=== PATIENT | male | born 1955 | race Caucasian/White ===

== ENCOUNTER → 2017-08-20 11:31 | Outpatient (CLI) | payer OTHER, SELFPAY ==
--- NOTE | 2017-08-20 11:40 | RAD_ITS ---
STUDY: X-RAY - RIGHT ANKLE REASON FOR EXAM: Male, 62 years old. Redness of the ankle TECHNIQUE: 3 view(s) of the ankle. COMPARISON: None. FINDINGS: There is mild swelling of the ankle but no acute fractures or dislocations. The ankle mortise and the subtalar joints are normal. RAD/Ankle min 3 Views IMPRESSION: No acute fractures. Mild soft tissue swelling Electronically Signed: Hector Lozano, at 10:42 EDT Tel , Service support ,
[2017-08-20 12:19] LABS: Absolute Lymphocyte Count 1.64 X10^3/ul (0.83-4.51); Absolute Neutrophil Count 5.4 X10^3/uL (2.0-7.7); Basophil# 0.03 X10^3/uL; Basophil% 0.4 % (0-1); Eosinophil# 0.23 X10^3/uL; Eosinophils% 2.9 % (0-5); Hematocrit 45.4 % (40-54); Hemoglobin 15.8 g/dl (13.0-16.5); Lymphocyte # 1.64 X10^3/ul (4.0); Lymphocyte % 20.9 % (19-41); Mean Corp Hgb Conc 34.8 g/gl (32-36); Mean Platelet Vol. 12.3 fl (6.2-12.0); Monocyte# 0.53 X10^3/uL; Monocyte% 6.8 % (0-10); Neutrophil # 5.37 X10^3/uL (2.7-7.7); Neutrophil % 68.6 % (47-70); Platelet Count 163 K/mm3 (150-450); RBC Distribution Width CV 13.1 % (11.6-14.6); RBC Distribution Width SD 42.5 fl (35.1-43.9); White Blood Count 7.8 K/mm3 (4.4-11.0)
[2017-08-20 12:21] LABS: POSITIVE COUNT NO; POSITIVE DIFFERENTIAL NO; POSITIVE MORPHOLOGY NO
[2017-08-20 12:30] LABS: ALB/GLOB Ratio 1.2 RATIO (0.9-2.4); AST(SGOT) 23 U/L (15-37); Alanine Aminotransfer ALT/SGPT 24 U/L (16-61); Alkaline Phosphatase 77 U/L (45-117); Anion Gap 3 (5-15); BUN 15 mg/dL (7-18); BUN/Creat Ratio 11.6 RATIO (10-20); Calcium,Total 8.7 mg/dL (8.5-10.1); Chloride 108 mmol/L (98-107); Creatinine, Serum 1.29 mg/dL (0.70-1.30); EST Glomerular Filtration Rate 60 mL/min (>60); Est Glom Filt Rate - Afr Amer 73 mL/min (>60); Globulin 3.4 g/dL (2.2-4.2); Glucose 108 mg/dL (74-106); Potassium 4.3 mmol/L (3.5-5.1); Protein, Total 7.4 g/dL (6.4-8.2); Sodium Level 140 mmol/L (136-145); Uric Acid 7.6 mg/dL (3.5-7.2)
== END ==
PROVIDERS: Family Provider Family Medicine; PCP Family Medicine; Visit Provider Family Medicine
DX: M25.579 Pain in unspecified ankle and joints of unspecified foot (principal); M10.9 Gout, unspecified
CPT/HCPCS: 36415; 73610; 80053; 84550; 85025

== ENCOUNTER → 2017-09-16 08:05 | Outpatient (CLI) | payer OTHER, SELFPAY ==
[2017-09-16 11:01] LABS: CRP < 2.90 mg/L (0.0-3.0); Cholesterol 198 mg/dL (200); High Density Lipoprotein 38 mg/dL; Triglycerides 121 mg/dL; Uric Acid 7.5 mg/dL (3.5-7.2); Very Low Density Lipoprotein 24 mg/dL (5-40)
== END ==
PROVIDERS: Family Provider Family Medicine; PCP Family Medicine; Visit Provider Family Medicine
DX: M10.9 Gout, unspecified (principal); Z13.220 Encounter for screening for lipoid disorders
CPT/HCPCS: 36415; 80061; 84550; 86140

== ENCOUNTER → 2017-10-20 08:10 | Outpatient (CLI) | payer OTHER, SELFPAY ==
[2017-10-20 10:25] LABS: Cholesterol 203 mg/dL (200); High Density Lipoprotein 35 mg/dL; Triglycerides 171 mg/dL; Uric Acid 7.8 mg/dL (3.5-7.2); Very Low Density Lipoprotein 34 mg/dL (5-40)
== END ==
PROVIDERS: Family Provider Family Medicine; PCP Family Medicine; Visit Provider Family Medicine
DX: R89.9 Unspecified abnormal finding in specimens from other organs, systems and tissues (principal); M10.9 Gout, unspecified
CPT/HCPCS: 36415; 80061; 84550

== ENCOUNTER → 2017-11-24 08:07 | Outpatient (CLI) | payer OTHER, SELFPAY ==
[2017-11-24 11:57] LABS: ALB/GLOB Ratio 1.2 RATIO (0.9-2.4); AST(SGOT) 23 U/L (15-37); Alanine Aminotransfer ALT/SGPT 31 U/L (16-61); Albumin, Serum 3.7 g/dL (3.2-5.0); Alkaline Phosphatase 86 U/L (45-117); Anion Gap 9 (5-15); BUN 16 mg/dL (7-18); BUN/Creat Ratio 14.4 RATIO (10-20); Chloride 109 mmol/L (98-107); Cholesterol 174 mg/dL (200); Creatinine, Serum 1.11 mg/dL (0.70-1.30); EST Glomerular Filtration Rate 71 mL/min (>60); Est Glom Filt Rate - Afr Amer 86 mL/min (>60); Globulin 3.2 g/dL (2.2-4.2); Glucose 111 mg/dL (74-106); High Density Lipoprotein 34 mg/dL; Potassium 4.1 mmol/L (3.5-5.1); Protein, Total 6.9 g/dL (6.4-8.2); Sodium Level 142 mmol/L (136-145); Triglycerides 132 mg/dL; Uric Acid 5.5 mg/dL (3.5-7.2); Very Low Density Lipoprotein 26 mg/dL (5-40)
== END ==
PROVIDERS: Family Provider Family Medicine; PCP Family Medicine; Visit Provider Family Medicine
DX: M10.9 Gout, unspecified (principal); R89.9 Unspecified abnormal finding in specimens from other organs, systems and tissues
CPT/HCPCS: 36415; 80053; 80061; 84550

== ENCOUNTER 2021-03-17 11:46 | Outpatient (CLI) | payer MEDICARE, OTHER, SELFPAY ==
[2021-03-17 15:28] LABS: Uric Acid 6.5 mg/dL (3.5-7.2)
== END 2021-03-17 23:59 | disposition short-term general hospital (02) ==
LOC: MFPLAB 11:47
PROVIDERS: PCP Family Medicine; Referring Provider Family Medicine; Visit Provider Family Medicine
DX: M10.9 Gout, unspecified (principal)
CPT/HCPCS: 36415; 84550

== ENCOUNTER 2021-03-30 08:50 | Day surgery (SDC) | payer MEDICARE, OTHER, SELFPAY ==
--- NOTE | 2021-03-24 09:07 | EKG12_ITS ---
Test Reason : PRE OP Blood Pressure : / mmHG Vent. Rate : 068 BPM Atrial Rate : 068 BPM P-R Int : 112 ms QRS Dur : 082 ms QT Int : 370 ms P-R-T Axes : 086 084 069 degrees QTc Int : 393 ms Normal sinus rhythm with short AK-interval Normal ECG Confirmed by WILFRID SANTIAGO, KEISHA ([id number]), editorial director CONNIE PETERSON ([id number]) on 03/25/2021 9:06:10 AM Referred By: Nam Soliz Confirmed By:KEISHA YUEN MD
[2021-03-24 10:35] LABS: Hematocrit 48.7 % (40-54); Hemoglobin 16.2 g/dL (13.0-16.5); Mean Corp Hgb Conc 33.3 g/dL (32-36); Mean Corpuscular Hgb 30.5 pg (27.0-32.0); Mean Corpuscular Volume 91.7 fL (80-94); Mean Platelet Vol. 12.2 fl (6.2-12.0); Platelet Count 210 K/mm3 (150-450); RBC Distribution Width SD 43.7 fl (35.1-43.9); Red Blood Count 5.31 M/mm3 (4.6-6.2); White Blood Count 7.2 K/mm3 (4.4-11.0)
[2021-03-24 10:45] LABS: Anion Gap 5 (5-15); BUN 18 mg/dL (7-18); BUN/Creat Ratio 14.5 RATIO (10-20); Calcium,Total 9.2 mg/dL (8.5-10.1); Chloride 107 mmol/L (98-107); Creatinine, Serum 1.24 mg/dL (0.70-1.30); EST Glomerular Filtration Rate 62 mL/min (>60); Est Glom Filt Rate - Afr Amer 75 mL/min (>60); Glucose 100 mg/dL (74-106); Potassium 4.2 mmol/L (3.5-5.1); Sodium Level 139 mmol/L (136-145)
--- NOTE | 2021-03-30 09:29 | PCM.HP.BLA ---
History and Physical Date of Admission: 03/30/21 Visit Reasons: TO SCHEDULE HERNIA SURGERY Chief Complaint: [facility]-update [employer] Required: No Is patient in pain?: No Allergies No Known Allergies Allergy (Unverified 03/11/21 14:31) Medications allopurinol 100 mg tablet 100 mg PO .prn tab 07/08/20 [History Confirmed 03/11/21] loratadine 10 mg tablet 10 mg PO .prn tab 07/08/20 [History Confirmed 03/11/21] PFSH Medical History Gout Seasonal allergies Surgical History S/P appendectomy S/P vasectomy Status post left rotator cuff repair Family History Grandmother Diabetes Mother Breast cancer Father Cancer lung Heart disease Social History Smoking Status: Never smoker alcohol intake: never HPI HPI HPI: ADRI JOINER, 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 I initially saw this gentleman July 08, 2020. It is pertinent that apparently in infancy he was badly dehydrated and he had a vertical incision in the right groin that he thinks was done for vascular access. He also states that later in life he had a gangrenous appendicitis and that was removed through a vertical right lower quadrant incision. On my clinical examination I felt likely that he has a right inguinal hernia probably direct. I propose for him at that time a Moni right inguinal herniorrhaphy. He apparently was recently planning a move to [facility]. He did not want to have the hernia repair at that setting. He returns now to discuss treatment options. He was going to move to [facility]. Due to the housing market he has not done that yet. He spent the summer though at his [place] fortunately his right inguinal hernia does not seem to have progressed ROS General General: No weight change, appetite, fatigue, colon cancer, breast cancer or weakness HEENT HEENT: No difficulty swallowing, eye injury, eye surgery, swollen glands or hoarseness Endo Endocrine: No thyroid disease, diabetes mellitus, thyroid cancer, Hair loss, heat intolerance or cold intolerance Skin Skin: No rash or changing moles [facility] Musculoskeletal: Yes gout; No back problems, arthritis, rheumatoid arthritis or joint pain Psych Psychiatric: No depression, anxiety or hearing voices Resp Respiratory: No shortness of breath, No sleep apnea, No cough, No COPD, No asthma, No emphysema and No wheezing Gastro Gastrointestinal: No abdominal pain, No nausea or vomiting, No diarrhea, No constipation, No blood in stool, No acid reflux, No hemorrhoids, No ulcers, No gallbladder problem and No black,tarry stools Win Hematologic: No blood thinners, No blood disorders, No bleeding, No anemia and No blood clots Neuro Neurologic: No system reviewed and no additional complaints, except as documented, No as per HPI, No abnormal gait, No abnormal hearing, No abnormal movements, No abnormal speech, No behavioral changes, No burning sensations, No confusion, No convulsions, No disequilibrium, No dizziness, No localized weakness, No frequent falls, No headache(s), No lack of coordination, No loss of vision, No memory loss, No numbness, No other visual disturbances, No radicular pain, No restless legs, No sensory deficit, No syncope, No tingling, No tremor(s), No weakness and No other Exam Const General: cooperative, healthy appearing, comfortable and no acute distress Nutritional Appearance: average body habitus Orientation: alert and awake [facility] Head: normal to inspection Eyes General: appearance normal, both eyes and all related structures Chest Chest palpation & inspection: normal inspection of the chest Resp Effort & Inspection: normal respiratory effort Auscultation: clear to auscultation bilaterally Cardio Rate: regular rate Rhythm: regular rhythm GI Palpation: no hepatosplenomegaly Other: Well-healed right lower quadrant vertical perirectus incision Other: Testicles are descended bilaterally. Right groin demonstrates a diffuse weakness but demonstrating more weakness laterally close to the internal ring. Reducible. Left groin solid and intact Proximal right thigh vertical irregular atrophy chelated incision [facility] Cervical Spine: normal cervical lordosis Skin General: no rashes or lesions noted Neuro General: patient alert, patient awake and patient oriented x3 Extrem General: no calf tenderness Psych Appearance: grossly normal Assessment and Plan Assessment and Plan (1) Inguinal hernia of right side without obstruction or gangrene: Status: Acute Plan - Dr. Nam Soliz MD: Suspected indirect right inguinal hernia. Previous history of ruptured appendicitis treated via a perirectus incision. Previous right groin vascular access in childhood. I propose for him a Moni right inguinal herniorrhaphy performed with monitored anesthesia care and local anesthetic. He is aware of the technique, benefit, risk, alternatives. He has had an opportunity to ask and have questions answered. He is aware of the presence of Covid-19. This is scheduled and anticipated to be an outpatient procedure. I believe that his exposure risk would be lower then eating at an indoor restaurant. He has had an opportunity to ask and have questions answered. He has had the COVID-19 vaccination and booster. He would like to schedule and proceed at his discretion. Copy: Dr. Cristofer Soliz M.D., F.A.C.S. I have re-examined the patient. There are no clinical changes since date of exam.
--- NOTE | 2021-03-30 09:29 | EX.PCM.DISCH ---
Discharge Instructions Procedure General Surgery Diet Discharge Diet: Light diet - advance as tolerated (if you have questions about your diet instructions, please talk to you doctor.) Activity Discharge Activity: May Not Drive (for 3-5 days or while taking narcotic pain medicine.) May shower in (days): 1 Lifting Restrictions: 10 pounds Dressing / Incision Call your doctor if your incision/area has: Continuous Slow Oozing, Sudden Increased Bleeding, Increased Pain/ Swelling, Increased Redness and Foul Smelling Discharge Call your doctor if you observe: Fever of 101 or Higher Suture Line Care: Avoid Pulling/Pushing and Avoid Pinching/Bending Additional Dressing/Incision Instructions:: Change or remove dressing in 4 days. Leave steri-strips in place for 1 week. Follow Up Care Please Follow Up With: Nam Soliz MD When: Call [phone] to make an appointment to be seen in about 10 days. Test Results: Test results from this visit will be discussed in further detail at your follow-up appointment, if applicable. Discharge Plan Admission Attending Provider: Nam Soliz Primary Care Provider: Cristofer Marte Discharge Orders/Prescriptions Prescriptions: No Action loratadine [Allergy Relief (loratadine)] 10 mg tablet 10 mg PO PRN PRN (Reason: ALLERGIES) RF: 0
[2021-03-30 09:36] VITALS: BP 130/75; PULSE 67; RESP 16; TEMP 36.6; O2SAT 97; BMI 26.4
[2021-03-30] MEDS: Lactated Ringers 1,000 ML 15 ML IV ×2 (09:40→11:31)
[2021-03-30] MEDS: Cefazolin 2 GM in 0.9% Normal Saline 100 ML IV (10:24)
[2021-03-30] MEDS: Lidocaine 1% (30 ml sdv) 30 ML Vial (10:39)
[2021-03-30] MEDS: Bupivacaine Mpf 0.5% 30 ML VIAL (10:39)
--- NOTE | 2021-03-30 11:16 | PCM.OPRPT ---
Problems Associated Problem List Diagnoses (1) Inguinal hernia of right side without obstruction or gangrene: Report of Operation Date of Procedure: 03/30/21 Pre-Operative Diagnosis: Right inguinal hernia Post-Operative Diagnosis: Direct right inguinal hernia Surgery/Procedure Performed:: Moni right inguinal herniorrhaphy Bard dhillon keyhole mesh. Lot number [id number], reference [id number], expiry date 08/01/2025 Description of Surgical Findings:: Timeout and informed consent was obtained. 66-year-old gentleman was taken to the operating placed on table underwent monitored anesthesia care. Ancef 2 g were given intravenously preoperatively. Clean procedure. The right groin was sterilely prepped and draped. 1% lidocaine mixed 50-50 with 0.5% Marcaine was used as a local anesthetic. Total 20 cc was used. A transverse incision was made in the right groin electrocautery dissection performed the external oblique was identified it was opened in line with his fascia the inguinal nerve identified protected circumferential control was obtained the cord structures with a Tony drain. The entire inguinal floor was disrupted. No evidence of any indirect defect. Sharp and blunt dissection was used to identify remaining transversalis fascia. Pubic tubercle was identified in the internal ring. A 3 Ethibond was then used to approximate the transversalis fascia to itself starting at the pubic tubercle and then refashioning the internal ring. I then used a Bard jacquie keyhole mesh around the internal ring and secured to itself laterally with 3-0 Ethibond. The tails were appropriately shortened. The mesh was placed so as to cover the direct defect area. It overlapped the pubic tubercle. It was then meticulously carefully secured in place to the pubic tubercle shelving edge of Poupart's and aponeurosis of the internal/external oblique with multiple interrupted 3-0 Ethibond sutures. Good approximation was achieved. Good placement of the mesh was felt to be achieved. The external oblique was approximated with several interrupted sutures of 3-0 Vicryl. Subcutaneous tissues approximated the same. Skin edges approximated running subicular 4-0 Monocryl. Steri-Strips Telfa OpSite dressings applied. Sponge and instrument and needle counts were reported to certainly be correct. Specimens none. Drains none. Blood loss minimal. The patient was taken to recovery room in satisfactory addition without apparent complication Nam Soliz M.D., F.A.C.S. Surgeon: joe Type of Anesthesia: Local MAC Anesthesiologist: Glen Lombardo
[2021-03-30 11:31] VITALS: BP 104/65; BP 130/75; PULSE 66; RESP 16; TEMP 36.3; O2SAT 99
[2021-03-30 11:45] VITALS: BP 113/74; BP 130/75; PULSE 60; RESP 16; O2SAT 93
[2021-03-30 11:55] VITALS: BP 106/70; BP 130/75; PULSE 61; RESP 16; O2SAT 96
[2021-03-30 12:00] VITALS: BP 112/78; BP 130/75; PULSE 59; RESP 16; TEMP 36.1; O2SAT 99
[2021-03-30] MEDS: Acetaminophen 325 MG Tablet 650 MG PO (12:39)
[2021-03-30 13:42] VITALS: BP 108/66; BP 130/75; PULSE 50; RESP 18; TEMP 36; O2SAT 99
== END 2021-03-30 23:59 | disposition home or self-care (01) ==
LOC: SDC 08:51 → AC 08:52
PROVIDERS: PCP Family Medicine; Referring Provider Surgery; Visit Provider Surgery
PROC: (CPT 49505; principal; 2021-03-30 10:45)
DX: K40.90 Unilateral inguinal hernia, without obstruction or gangrene, not specified as recurrent (principal); M10.9 Gout, unspecified; Z79.899 Other long term (current) drug therapy
CPT/HCPCS: 49505; 00830; 36415; 80048; 85027; 93005; J7120; C1781; J2405